=== PATIENT | male | born 1980 | race Caucasian/White ===

== ENCOUNTER 2017-04-12 22:17 | Emergency (ER) | payer BC, OTHER ==
[~2017-04-12] VITALS: Ht 165.1 cm; Wt 79.5 kg
[~2017-04-12 22:17] MED LIST: IBUP-1542 PO; RANI150T9 PO
[2017-04-12 22:37] VITALS: Ht 165.1 cm; Wt 79.5 kg
[2017-04-13] MEDS ORDERED: METOPROLOL 25 MG TAB PO ONE
--- NOTE | 2017-04-13 00:22 | ERD ---
ER Documentation Chief Complaint Date/Time DATE: 04/13/17 TIME: 00:18 Chief Complaint HEADACHE, DIZZINESS, DOUBLE VISION X 1 MONTH HPI 36-year-old male presents to emergency department for complaints of headache on and off dizziness, on and off blurry vision double vision for one month. Patient was seen by 2 days ago, was given new glasses, patient was told to possibly have a radiology scan of the brain for further evaluation. Patient discussed the headache as throbbing pain, 6/10 scale, accompanied with dizziness and double vision at times. Intermittent pain. Patient has history of hypertension, did not take his dose of metoprolol tonight. Patient used Metoprolol 3 weeks ago. Patient denies any nausea or vomiting. Patient denies any numbness or tingling. Patient denies any focal weakness. Patient denies any changes in balance or memory. ROS All systems reviewed and are negative except as per history of present illness. Medications Home Meds Active Scripts Ibuprofen* (Motrin*) 600 Mg Tab, 600 MG PO Q6, #30 TAB Prov:CRISTY,CATHIE C 06/19/15 Ranitidine Hcl* (Zantac*) 150 Mg Tablet, 150 MG PO BID Y for acid, #30 TAB Prov:CRISTY,CATHIE C 06/19/15 Allergies Allergies: Coded Allergies: No Known Allergy (Unverified , 04/12/17) PMhx/Soc Medical and Surgical Hx: pt denies Surgical Hx History of Surgery: No Anesthesia Reaction: No Hx Neurological Disorder: No Hx Respiratory Disorders: No Hx Cardiac Disorders: Yes (HTN) Hx Psychiatric Problems: No Hx Miscellaneous Medical Probl: No Hx Alcohol Use: No Hx Substance Use: No Hx Tobacco Use: No FmHx Family History: No coronary disease, No diabetes, No other Physical Exam Vitals Vital Signs Date Time Temp Pulse Resp B/P Pulse Ox O2 Delivery O2 Flow Rate FiO2 04/12/17 23:55 142/104 04/12/17 22:37 97.9 84 18 160/100 100 Physical Exam GENERAL: The patient is well developed and appropriate for usual state of health, in no apparent distress. CHEST: Clear to auscultation bilaterally. There are no rales, wheezes or rhonchi. HEART: Regular rate and rhythm. No murmurs, clicks, rubs or gallops. No S3 or S4. ABDOMEN: Soft, nontender and nondistended. Good bowel sounds. No rebound or guarding. No gross peritonitis. No gross organomegaly or masses. No Herring sign or McBurney point tenderness. BACK: No midline or flank tenderness. EXTREMITIES: Equal pulses bilaterally. There is no peripheral clubbing, cyanosis or edema. No focal swelling or erythema. Full range of motion. Grossly neurovascularly intact. NEURO: Alert and oriented. Cranial nerves 2-12 intact. Motor strength in all 4 extremities with 5/5 strength. Sensation grossly intact. Normal speech and gait. SKIN: There is no apparent rash or petechia. The skin is warm and dry. HEMATOLOGIC AND LYMPHATIC: There is no evidence of excessive bruising or lymphedema. No gross cervical, axillary, or inguinal lymphadenopathy. Results 24 hrs Current Medications Medications (Trade) Dose Ordered Sig/F[place]il[place] Route PRN Reason Start Time Stop Time Status Last Admin Dose Admin Metoprolol Tartrate (Lopressor) 25 mg ONCE ONCE PO 04/13/17 00:00 04/13/17 00:01 DC 04/13/17 00:23 His dose of a metoprolol was given here in emergency department. PROCEDURE: CT Brain without contrast. CLINICAL INDICATION: Blurred vision, headache. TECHNIQUE: A CT of the brain was performed utilizing axial sections from the skull base through the vertex without contrast. Multiplanar re-formations were generated. Images were reviewed on a high-resolution PACS workstation. CTDIvol: 43.86 mGy. DLP: 720.23 mGy-cm. One or more of the following dose reduction techniques were used: - Automated exposure control. - Adjustment of the mA and/or kV according to patient size. - Use of iterative reconstruction technique. COMPARISON: None available FINDINGS: There is no cerebral volume loss. No hydrocephalus is seen. There is no mass effect. No acute intracranial hemorrhage is identified. There is no extra-axial collection. Cross-white matter differentiation is preserved. There is no significant mucosal disease in the paranasal sinuses. The visualized mastoid air cells are clear. The ossesous structures are unremarkable. The extracranial soft tissues are unremarkable. IMPRESSION: 1. No acute intracranial pathology. RPTAT: HTAR .Franklin Ziegler MD, MD Date Time Electronically viewed and signed by .Franklin Ziegler MD, MD on 04/13/2017 01:55 .R/ CC: FERNANDA REYES NP Procedures/MDM Medical Decision Making: Patient's headache most likely is consistent with possible tension headache, and also migraine headache. Neurologic exam is normal , normal extra ocular movements. No strabismus noted. He shows acuity is normal. There is low suspicion for neurological emergencies at this time since patients neurologic exam is normal. Patient did not have any altered level consciousness, vomiting, changes in balance or memory after incident. Patients CT scan of the head does not show any neurological emergencies at this time. Prescription was given for Fioricet with codeine for pain, is advised to see eye doctor for vision changes, possible adjustment of glasses. Patient was advised to follow-up with primary care doctor in 2-3 days for reevaluation of symptoms, talk with primary care doctor for possible adjustment of hypertension medications. Patient was advised to return to emergency department for any worsening symptoms. Patient's blood pressure was elevated (>120/80) but appears stable without evidence of hypertension emergency or urgency. The patient was counseled about the risks of hypertension and urged to pursue outpatient monitoring and therapy within a week with their primary care physician. Dispostion: Home. Stable Departure Diagnosis: Primary Impression: Headache Headache type: unspecified Headache chronicity pattern: acute headache Intractability: not intractable Qualified Code: R51 - Acute nonintractable headache, unspecified headache type Additional Impression: Vision disturbance Condition: Stable Patient Instructions: Self-Care for Headaches Additional Instructions: Prescription was given for Fioricet with codeine for pain, is advised to see eye doctor for vision changes, possible adjustment of glasses. FERNANDA REYES NP April 13, 2017 00:22
--- NOTE | 2017-04-13 01:55 | RADRPT ---
PROCEDURE: CT Brain without contrast. CLINICAL INDICATION: Blurred vision, headache. TECHNIQUE: A CT of the brain was performed utilizing axial sections from the skull base through th e vertex without contrast. Multiplanar re-formations were generated. Images were reviewed on a high- resolution PACS workstation. CTDIvol: 43.86 mGy. DLP: 720.23 mGy-cm. One or more of the following dose reduction techniques were used: - Automated exposure control. - Adjustment of the mA and/or kV according to patient size. - Use of iterative reconstruction technique. COMPARISON: None available FINDINGS: There is no cerebral volume loss. No hydrocephalus is seen. There is no mass effect. No acute intrac ranial hemorrhage is identified. There is no extra-axial collection. Cross-white matter differentiati on is preserved. There is no significant mucosal disease in the paranasal sinuses. The visualized mastoid air cells are clear. The ossesous structures are unremarkable. The extracranial soft tissues are unremarkable. IMPRESSION: 1. No acute intracranial pathology. RPTAT: HTAR .Franklin Ziegler MD, Date Time Electronically viewed and signed by .Franklin Ziegler MD, on 04/13/2017 01:55 .R/
[2017-04-13 02:27] VITALS: BP 144/93
[2017-04-13] MEDS ORDERED: BUTA1CAP39 PO (02:28)
== END 2017-04-13 03:00 | disposition home or self-care (01) ==
LOC: FTE 22:17
DX: R51 Headache (principal); H53.9 Unspecified visual disturbance; I10 Essential (primary) hypertension
CPT/HCPCS: 70450